=== PATIENT | female | born 1945 | race Caucasian/White ===

== ENCOUNTER 2023-11-06 06:17 | Observation (INO) | payer MEDICARE ==
[2023-11-06 07:12] LABS: Absolute Neutrophil Ct (ANC) 3.53 x10^3/uL (1.4-6.9); BASOPHIL % 0.6 % (0.0-0.4); Basophil (Absolute #) 0.05 x10^3/uL (0-0.4); Eosinophil % 4.5 % (0.00-5.0); Eosinophil (Absolute #) 0.37 x10^3/uL (0-0.5); Hematocrit 39.1 % (35-47); Hemoglobin 12.7 g/dL (12.0-16.0); IMMATURE GRAN # 0.02 x10^3u/L (0.00-0.03); IMMATURE GRAN % 0.2 % (0.00-0.4); Lymphocyte (Absolute #) 3.69 x10^3/uL (1.0-4.6); Lymphocytes % 44.5 % (24.0-44.0); Mean Cell Volume 85.4 fL (78-100); Mean Corpuscular Hemoglobin 27.7 pg (26-32); Mean Corpuscular Hgb Concent. 32.5 g/dL (32-36); Mean Platelet Volume 10.9 fL (7.5-11.0); Monocyte (Absolute #) 0.63 x10^3/uL (0.0-1.3); Monocytes % 7.6 % (0.0-12.0); Neutrophil % 42.6 % (36.0-66.0); Platelet Count 272 x10^3/uL (150-450); Red Blood Count 4.58 x10^6/uL (4.1-5.4); Red Cell Distribution Width 12.6 % (11.5-14.0); White Blood Count 8.3 x10^3/uL (4.0-10.5)
[2023-11-06 07:48] LABS: ALBUMIN 4.3 g/dL (3.5-5.0); ANION GAP 11.4 MEQ/L (5-15); BILIRUBIN,TOTAL 0.6 mg/dL (0.2-1.3); Calcium 9.6 mg/dL (8.4-10.2); Creatinine 1 0.59 mg/dL (0.52-1.04); EST GLOMERULAR FILTRATION RATE 91.1 ML/MIN; Total Protein 7.4 g/dL (6.3-8.2)
[2023-11-06 07:56] LABS: Appearance Clear (Clear); Bacteria None Seen /HPF (None Seen); Bilirubin Negative (Negative); Blood Negative (Negative); Epithelial Cells None Seen /HPF (None Seen); Glucose, Urine Negative (Negative); Hyaline Casts NONE SEEN /LPF (0-2); Ketones Negative (Negative); Leukocyte Esterase Negative (Negative); Nitrite Negative (Negative); Protein,Urine Dip Negative (Negative); RBC 0-2 /HPF (0-5); Specific Gravity <=1.005 (1.005-1.030); Urobilinogen 0.2 mg/dL (0.2); WBC 0-2 /HPF (0-5)
[2023-11-06 08:06] LABS: ADD URINE CULTURE? NO (NO)
[2023-11-06] MEDS ORDERED: BABY ASPIRIN 81 MG CHEW ONE (08:28)
[2023-11-06] MEDS ORDERED: NITRO-BID 2% UD PACKETS ONE (08:28)
[2023-11-06] MEDS: NITRO-BID 2% UD PACKETS TOP ONE (08:31)
[2023-11-06] MEDS: BABY ASPIRIN 81 MG CHEW PO ONE (08:33)
--- NOTE | 2023-11-06 08:57 | XRAY ---
Indication: Left chest pain. Comparison: None Portable chest demonstrates minimal bibasilar hazy infiltrates versus atelectasis, left greater than right. Heart is not enlarged. Bony thorax intact with osteopenia and mild degenerative changes. Comment: Lung findings not reported by interpreting ER clinician. Telephone report given to Dr. Martin at 0852 hrs. on July 06, 2024.
--- NOTE | 2023-11-06 11:27 | ERPHSYRPT ---
- History of Present Illness Time Seen by Provider: 11/06/23 08:10 Historian: patient, family Exam Limitations: no limitations Patient Subjective Stated Complaint: pt states she woke up around 0130 with chest pain radiating to her lt arm. Triage Nursing Assessment: pt alert and oriented, answers questions approp. pt ambulates into room with steady gait noted. respirations nonlabored with lungs cta [place] warm and dry. heart rate 86 sinus rhythm on monitor. . Physician History: 78 years old female with history of hypertension presented in the ER with intermittent chest pain since 1 AM today. Patient reports she woke up around 130 with left-sided chest pain with some radiation to the left arm. Patient described this as a pressure sensation, took baby aspirin and went back to sleep. She woke up again prior to arrival with moderate to severe dull aching pain/pressure with radiation to left arm without any significant aggravating or relieving factors. Denies associated palpitations or shortness of breath. No fever or chills or cough reported. Denies any history of coronary artery disease or cardiac workup in the past. Aspirin Treatment Today: 81 mg x 1 Allergies/Adverse Reactions: No Known Drug Allergies Allergy (Verified 11/06/23 12:19) Home Medications: Amlodipine Besylate [Norvasc] 10 mg PO HS 11/06/23 [History] Benazepril HCl [Lotensin] 20 mg PO HS 11/06/23 [History] Hx Tetanus, Diphtheria Vaccination/Date Given: Yes Hx Influenza Vaccination/Date Given: Yes Hx Pneumococcal Vaccination/Date Given: Yes Travel Risk - International Travel Have you traveled outside of the country in past 3 weeks: No - Coronavirus Screening Are you exhibiting any of the following symptoms?: No Close contact with a COVID-19 positive Pt in past 14-21 Days: No - Vaccine Status Have you recieved a Covid-19 vaccination: Yes Neurology Physician: Moderna - Vaccination Dates Date of 2cond Vaccination (if applicable): 2020 - Review of Systems Constitutional: No Symptoms Eyes: No Symptoms Ears, Nose, & Throat: No Symptoms Respiratory: No Symptoms Cardiac: Chest Pain Abdominal/Gastrointestinal: No Symptoms Genitourinary Symptoms: No Symptoms Musculoskeletal: No Symptoms Skin: No Symptoms Neurological: No Symptoms Psychological: No Symptoms Endocrine: No Symptoms - Past Medical History Cardiac History: Hypertension Other Medical History: swelling in lower ext - Past Surgical History Past Surgical History: Yes Musculoskeletal: Joint Replacement Female Surgical History: Hysterectomy Other Surgical History: rt tot hip - Social History Smoking Status: Never smoker Exposure to second hand smoke: No Drug Use: none Patient Lives Alone: No - Nursing Vital Signs Nursing Vital Signs: Initial Vital Signs Temperature 98.5 F 11/06/23 06:20 Pulse Rate 80 11/06/23 06:20 Respiratory Rate 16 11/06/23 06:20 Blood Pressure 150/70 11/06/23 06:20 O2 Sat by Pulse Oximetry 97 11/06/23 06:20 Pain Scale Pain Intensity 10 - Physical Exam General Appearance: no apparent distress, alert Eye Exam: PERRL/EOMI Ears, Nose, Throat Exam: normal ENT inspection, pharynx normal, moist mucous membranes Neck Exam: normal inspection, non-tender, supple, full range of motion Respiratory Exam: normal breath sounds, lungs clear Cardiovascular Exam: regular rate/rhythm, normal heart sounds Gastrointestinal/Abdomen Exam: soft, normal bowel sounds, No tenderness Back Exam: normal inspection, normal range of motion Extremity Exam: normal inspection, normal range of motion Neurologic Exam: alert, oriented x 3, cooperative, post splitter II-XII nml as tested Skin Exam: normal color SpO2 Interpretation: normal SpO2: 94 O2 Delivery: Room Air - Course EKG Interpreted by Me: RATE (88), Sinus Rhythm, Left [place] Deviation, NORMAL INTERVALS, Other (PACs) Ordered Tests: Medication Summary Discontinued Medications Generic Name Dose Route Start Last Admin Trade Name Freq PRN Reason Stop Dose Admin Acetaminophen 325 mg 11/06/23 12:51 11/06/23 20:30 Acetaminophen 325 Mg Tablet PO 12/06/23 12:50 325 mg Q4H PRN PRN Administration PAIN, FEVER, HEADACHE Amlodipine Besylate 10 mg 11/06/23 22:00 11/06/23 22:53 Amlodipine Besylate 5 Mg Tablet PO 12/06/23 21:59 10 mg HS KLEBER Administration Aspirin 243 mg 11/06/23 08:25 11/06/23 08:33 Aspirin 81 Mg Tab.Chew PO 11/06/23 08:26 243 mg STAT ONE Administration Aspirin Confirm 11/06/23 08:28 Aspirin 81 Mg Tab.Chew Administered 11/06/23 08:29 Dose 324 mg .ROUTE .STK-MED ONE Benazepril HCl 20 mg 11/06/23 22:00 11/06/23 22:54 Benazepril Hcl 10 Mg Tablet PO 12/06/23 21:59 20 mg HS KLEBER Administration Enoxaparin Sodium 40 mg 11/07/23 10:00 11/07/23 09:19 Enoxaparin Sodium 40 Mg/0.4 Ml Syringe SQ 12/07/23 09:59 Not Given DAILY KLEBER Famotidine 20 mg 11/06/23 22:00 11/07/23 09:16 Famotidine 20 Mg Tablet PO 12/06/23 21:59 20 mg BID KLEBER Administration Nitroglycerin 0.5 gm 11/06/23 08:26 11/06/23 08:31 Nitroglycerin 1 Gm Packet TOP 11/06/23 08:27 0.5 gm STAT ONE Administration Nitroglycerin Confirm 11/06/23 08:28 Nitroglycerin 1 Gm Packet Administered 11/06/23 08:29 Dose 1 gm .ROUTE .STK-MED ONE Nitroglycerin 0.4 mg 11/06/23 12:55 Nitroglycerin 0.4 Mg Tablet Bottle SL 12/06/23 12:54 Q5MIN PRN MR X 3 PRN CHEST PAIN Lab/Rad Data: Laboratory Result Diagrams 11/06/23 06:55 11/06/23 06:55 Laboratory Results 11/06/23 11/06/23 11/06/23 Range/Units 10:53 07:48 06:55 WBC (4.0-10.5) x10^3/uL RBC (4.1-5.4) x10^6/uL Hgb (12.0-16.0) g/dL Hct (35-47) % MCV (78-100) fL MCH (26-32) pg MCHC (32-36) g/dL RDW (11.5-14.0) % Plt Count (150-450) x10^3/uL MPV (7.5-11.0) fL Gran % (36.0-66.0) % Immature Gran % (Auto) (0.00-0.4) % Nucleat RBC Rel Count (0.00-0.1) % Eos # (Auto) (0-0.5) x10^3/uL Immature Gran # (Auto) (0.00-0.03) x10^3u/L Absolute Lymphs (auto) (1.0-4.6) x10^3/uL Absolute Monos (auto) (0.0-1.3) x10^3/uL Absolute Nucleated RBC (0.00-0.01) x10^3u/L Lymphocytes % (24.0-44.0) % Monocytes % (0.0-12.0) % Eosinophils % (0.00-5.0) % Basophils % (0.0-0.4) % Absolute Granulocytes (1.4-6.9) x10^3/uL Basophils # (0-0.4) x10^3/uL Sodium (137-145) mmol/L Potassium (3.5-5.1) mmol/L Chloride (98-107) mmol/L Carbon Dioxide (22-30) mmol/L Anion Gap (5-15) MEQ/L BUN (7-17) mg/dL Creatinine (0.52-1.04) mg/dL Estimated GFR ML/MIN Glucose (74-106) mg/dL Calcium (8.4-10.2) mg/dL Total Bilirubin (0.2-1.3) mg/dL AST (14-36) U/L ALT (0-35) U/L Alkaline Phosphatase (38-126) U/L Troponin I < 0.012 (0.000-0.034) ng/mL NT-Pro-B Natriuret Pep (<300) pg/mL Serum Total Protein (6.3-8.2) g/dL Albumin (3.5-5.0) g/dL Triglycerides 82 (30-150) mg/dL Cholesterol 224 H (50-200) mg/dL LDL Cholesterol 108 H (30-100) mg/dL HDL Cholesterol 85 H (40-60) mg/dL Heart Disease Risk Ratio 2.6 Urine Color Yellow (Yellow) Urine Appearance Clear (Clear) Urine pH 7.0 (4.6-8.0) Ur Specific [place] <=1.005 (1.005-1.030) Urine Protein Negative (Negative) Urine Glucose (UA) Negative (Negative) mg/dL Urine Ketones Negative (Negative) Urine Blood Negative (Negative) Urine Nitrite Negative (Negative) Urine Bilirubin Negative (Negative) Urine Urobilinogen 0.2 (0.2) mg/dL Ur Leukocyte Esterase Negative (Negative) U Hyaline Cast (Auto) NONE SEEN (0-2) /LPF Urine Microscopic RBC 0-2 (0-5) /HPF Urine Microscopic WBC 0-2 (0-5) /HPF Ur Epithelial Cells None Seen (None Seen) /HPF Urine Bacteria None Seen (None Seen) /HPF Urine Culture Reflexed NO (NO) 11/06/23 11/06/23 11/06/23 Range/Units 06:55 06:55 06:55 WBC 8.3 (4.0-10.5) x10^3/uL RBC 4.58 (4.1-5.4) x10^6/uL Hgb 12.7 (12.0-16.0) g/dL Hct 39.1 (35-47) % MCV 85.4 (78-100) fL MCH 27.7 (26-32) pg MCHC 32.5 (32-36) g/dL RDW 12.6 (11.5-14.0) % Plt Count 272 (150-450) x10^3/uL MPV 10.9 (7.5-11.0) fL Gran % 42.6 (36.0-66.0) % Immature Gran % (Auto) 0.2 (0.00-0.4) % Nucleat RBC Rel Count 0.0 (0.00-0.1) % Eos # (Auto) 0.37 (0-0.5) x10^3/uL Immature Gran # (Auto) 0.02 (0.00-0.03) x10^3u/L Absolute Lymphs (auto) 3.69 (1.0-4.6) x10^3/uL Absolute Monos (auto) 0.63 (0.0-1.3) x10^3/uL Absolute Nucleated RBC 0.00 (0.00-0.01) x10^3u/L Lymphocytes % 44.5 H (24.0-44.0) % Monocytes % 7.6 (0.0-12.0) % Eosinophils % 4.5 (0.00-5.0) % Basophils % 0.6 (0.0-0.4) % Absolute Granulocytes 3.53 (1.4-6.9) x10^3/uL Basophils # 0.05 (0-0.4) x10^3/uL Sodium 139 (137-145) mmol/L Potassium 4.0 (3.5-5.1) mmol/L Chloride 107 (98-107) mmol/L Carbon Dioxide 24 (22-30) mmol/L Anion Gap 11.4 (5-15) MEQ/L BUN 15 (7-17) mg/dL Creatinine 0.59 (0.52-1.04) mg/dL Estimated GFR 91.1 ML/MIN Glucose 97 (74-106) mg/dL Calcium 9.6 (8.4-10.2) mg/dL Total Bilirubin 0.60 (0.2-1.3) mg/dL AST 22 (14-36) U/L ALT 12 (0-35) U/L Alkaline Phosphatase 68 (38-126) U/L Troponin I < 0.012 (0.000-0.034) ng/mL NT-Pro-B Natriuret Pep 128 (<300) pg/mL Serum Total Protein 7.4 (6.3-8.2) g/dL Albumin 4.3 (3.5-5.0) g/dL Triglycerides (30-150) mg/dL Cholesterol (50-200) mg/dL LDL Cholesterol (30-100) mg/dL HDL Cholesterol (40-60) mg/dL Heart Disease Risk Ratio Urine Color (Yellow) Urine Appearance (Clear) Urine pH (4.6-8.0) Ur Specific [place] (1.005-1.030) Urine Protein (Negative) Urine Glucose (UA) (Negative) mg/dL Urine Ketones (Negative) Urine Blood (Negative) Urine Nitrite (Negative) Urine Bilirubin (Negative) Urine Urobilinogen (0.2) mg/dL Ur Leukocyte Esterase (Negative) U Hyaline Cast (Auto) (0-2) /LPF Urine Microscopic RBC (0-5) /HPF Urine Microscopic WBC (0-5) /HPF Ur Epithelial Cells (None Seen) /HPF Urine Bacteria (None Seen) /HPF Urine Culture Reflexed (NO) - Progress Progress: improved, re-examined Air Movement: good Progress Note: 11/06/23 11:37 78 years old is evaluated for intermittent left-sided chest pressure pain with radiation to the left arm. Patient is given aspirin and Nitropaste, on reevaluation her pain is remarkably improved. EKG showed sinus rhythm with no acute ST elevation and negative troponins. Chest x-ray showed bibasilar infiltrate versus atelectasis, I do not think patient has pneumonia but more of atelectasis. She is on room air 98% and no tachypnea or tachycardia lungs clear to auscultation. Chemistries fairly unremarkable otherwise. With her intermittent chest pain I believe patient would benefit with observation admission and trending of cardiac enzymes and further evaluation possible stress test/calcium scoring. I have discussed with hospitalist Dr. Francis, Reviewed history, workup and agreed with admission. I have discussed the results of workup with patient and family who understand and agree with plan of observation admission. Blood Culture(s) Obtained: No Antibiotics given: No Discussed with Dr.: Other (Dr. Francis) Counseled pt/family regarding: lab results, diagnosis, rad results Medical Desision Making - Discussion of managment Care discussed with:: hospitalist Reviewed:: Test results Agreed on:: Treatment plan, place in obs Will see patient: in hospital - Diagnostic Testing Diagnostic test were ordered, analyzed, and reviewed by me: Yes Radiological Interpretation: Reviewed by me - Risk of complications The pt has a high risk of morbidity or mortality based on: Decision regarding hospitilization or escalation of hosp level of care - Departure Departure Disposition: Observation Clinical Impression: Chest pain, rule out acute myocardial infarction Condition: Stable Critical Care Time: No
--- NOTE | 2023-11-06 12:46 | PCM.HP ---
History of Present Illness - Chief Complaint Chief Complaint: Chest pain rule out acute [place] Date: 11/06/23 (12:41) History of Present Illness: is a 78 year old female admitted with chest pain. Pain came on at 1:30 am. She took some nitro and had continued pain but was able to sleep at 3:30. She woke up at 5:30 and pain was still there so she came to ER. Pain is described as pressure sensation that radiates to left arm. Pain came on at rest. No provocative factors. Pain was relieved with nitro. She did not have dyspnea, nausea or diaphoresis with the pain. The pain is gone now. She denies history of heart disease. She has HTN but no diabetes, HLD or smoking. She does have FH of CAD. PMH includes only history of HTN. - Review of Systems Constitutional: No Symptoms, No Fever Eyes: No Symptoms Ears, Nose, & Throat: No Symptoms Respiratory: No Symptoms, No Cough, No Orthopnea, No Short Of Breath Cardiac: Chest Pain, Edema, No Palpitations, No Syncope, No Orthopnea, No PND Abdominal/Gastrointestinal: No Symptoms, No Abdominal Pain, No Nausea, No Vomiting Genitourinary Symptoms: No Symptoms, No Dysuria, No Frequency, No Hematuria Musculoskeletal: No Symptoms Skin: No Symptoms Neurological: No Symptoms Psychological: No Symptoms Endocrine: No Symptoms Hematologic/Lymphatic: No Symptoms Immunological/Allergic: No Symptoms All Other Systems: Reviewed and Negative Medications & Allergies Home Medications: Home Medication List Amlodipine Besylate [Norvasc] 10 mg PO HS 11/06/23 [History Confirmed 11/06/23] Benazepril HCl [Lotensin] 20 mg PO HS 11/06/23 [History Confirmed 11/06/23] Allergies/Adverse Reactions: Allergies Allergy/AdvReac Type Severity Reaction Status Date / Time No Known Drug Allergies Allergy Verified 11/06/23 12:19 - Past Medical History Neurological History: No Pertinent History ENT History: No Pertinent History Cardiac History: No Pertinent History, Hypertension Respiratory History: No Pertinent History Endocrine Medical History: No Pertinent History Musculoskelatal History: Arthritis GI Medical History: Irritable Bowel History: No Pertinent History Pyscho-Social History: No Pertinent History Reproductive Disorders: No Pertinent History Comment: HIP REPLACEMENT D/T ARTHRITIS - Past Surgical History Past Surgical History: Yes Cardiac History: No Pertinent History GI Surgical History: No Pertinent History Genitourinary Surgical Hx: No Pertinent History Musculskeletal Surgical Hx: Joint Replacement Female Surgical History: Hysterectomy Other Surgical History: rt tot hip - Social History Smoking Status: Never smoker Exposure to second hand smoke: No Alcohol: None Drug Use: none - Physical Exam Vital Signs: Vital Signs - 24 hr Temp Pulse Pulse Resp BP BP Pulse Ox 11/06/23 11:39 94 L 11/06/23 11:00 71 19 131/60 11/06/23 10:30 72 15 127/59 11/06/23 10:00 66 19 130/55 11/06/23 09:36 75 24 120/60 94 L 11/06/23 09:35 94 L 11/06/23 08:30 77 15 158/72 95 11/06/23 08:01 74 16 142/60 94 L 11/06/23 07:30 71 21 151/70 96 11/06/23 07:00 74 15 135/61 97 11/06/23 06:41 95 11/06/23 06:30 73 20 148/69 96 11/06/23 06:20 98.5 F 80 90 16 150/70 97 General Appearance: no apparent distress Neurologic Exam: alert, oriented x 3, cooperative, specification consultant II-XII nml as tested Eye Exam: PERRL/EOMI, eyes nml inspection Ears, Nose, Throat Exam: normal ENT inspection Neck Exam: normal inspection, non-tender, supple, full range of motion Respiratory Exam: normal breath sounds Cardiovascular Exam: regular rate/rhythm, normal heart sounds Gastrointestinal/Abdomen Exam: soft, normal bowel sounds, No tenderness, No distention, No mass Rectal Exam: deferred Back Exam: normal inspection Extremity Exam: normal inspection Skin Exam: normal color Lymphatic Exam: No adenopathy Results - Labs Lab/Micro Results: Lab Results-Last 24 Hours 11/06/23 11/06/23 11/06/23 Range/Units 06:55 06:55 06:55 WBC 8.3 (4.0-10.5) x10^3/uL RBC 4.58 (4.1-5.4) x10^6/uL Hgb 12.7 (12.0-16.0) g/dL Hct 39.1 (35-47) % MCV 85.4 (78-100) fL MCH 27.7 (26-32) pg MCHC 32.5 (32-36) g/dL RDW 12.6 (11.5-14.0) % Plt Count 272 (150-450) x10^3/uL MPV 10.9 (7.5-11.0) fL Gran % 42.6 (36.0-66.0) % Immature Gran % (Auto) 0.2 (0.00-0.4) % Nucleat RBC Rel Count 0.0 (0.00-0.1) % Eos # (Auto) 0.37 (0-0.5) x10^3/uL Immature Gran # (Auto) 0.02 (0.00-0.03) x10^3u/L Absolute Lymphs (auto) 3.69 (1.0-4.6) x10^3/uL Absolute Monos (auto) 0.63 (0.0-1.3) x10^3/uL Absolute Nucleated RBC 0.00 (0.00-0.01) x10^3u/L Lymphocytes % 44.5 H (24.0-44.0) % Monocytes % 7.6 (0.0-12.0) % Eosinophils % 4.5 (0.00-5.0) % Basophils % 0.6 (0.0-0.4) % Absolute Granulocytes 3.53 (1.4-6.9) x10^3/uL Basophils # 0.05 (0-0.4) x10^3/uL Sodium 139 (137-145) mmol/L Potassium 4.0 (3.5-5.1) mmol/L Chloride 107 (98-107) mmol/L Carbon Dioxide 24 (22-30) mmol/L Anion Gap 11.4 (5-15) MEQ/L BUN 15 (7-17) mg/dL Creatinine 0.59 (0.52-1.04) mg/dL Estimated GFR 91.1 ML/MIN Glucose 97 (74-106) mg/dL Calcium 9.6 (8.4-10.2) mg/dL Total Bilirubin 0.60 (0.2-1.3) mg/dL AST 22 (14-36) U/L ALT 12 (0-35) U/L Alkaline Phosphatase 68 (38-126) U/L Troponin I < 0.012 (0.000-0.034) ng/mL NT-Pro-B Natriuret Pep 128 (<300) pg/mL Serum Total Protein 7.4 (6.3-8.2) g/dL Albumin 4.3 (3.5-5.0) g/dL Urine Color (Yellow) Urine Appearance (Clear) Urine pH (4.6-8.0) Ur Specific [place] (1.005-1.030) Urine Protein (Negative) Urine Glucose (UA) (Negative) mg/dL Urine Ketones (Negative) Urine Blood (Negative) Urine Nitrite (Negative) Urine Bilirubin (Negative) Urine Urobilinogen (0.2) mg/dL Ur Leukocyte Esterase (Negative) U Hyaline Cast (Auto) (0-2) /LPF Urine Microscopic RBC (0-5) /HPF Urine Microscopic WBC (0-5) /HPF Ur Epithelial Cells (None Seen) /HPF Urine Bacteria (None Seen) /HPF Urine Culture Reflexed (NO) 11/06/23 11/06/23 Range/Units 07:48 10:53 WBC (4.0-10.5) x10^3/uL RBC (4.1-5.4) x10^6/uL Hgb (12.0-16.0) g/dL Hct (35-47) % MCV (78-100) fL MCH (26-32) pg MCHC (32-36) g/dL RDW (11.5-14.0) % Plt Count (150-450) x10^3/uL MPV (7.5-11.0) fL Gran % (36.0-66.0) % Immature Gran % (Auto) (0.00-0.4) % Nucleat RBC Rel Count (0.00-0.1) % Eos # (Auto) (0-0.5) x10^3/uL Immature Gran # (Auto) (0.00-0.03) x10^3u/L Absolute Lymphs (auto) (1.0-4.6) x10^3/uL Absolute Monos (auto) (0.0-1.3) x10^3/uL Absolute Nucleated RBC (0.00-0.01) x10^3u/L Lymphocytes % (24.0-44.0) % Monocytes % (0.0-12.0) % Eosinophils % (0.00-5.0) % Basophils % (0.0-0.4) % Absolute Granulocytes (1.4-6.9) x10^3/uL Basophils # (0-0.4) x10^3/uL Sodium (137-145) mmol/L Potassium (3.5-5.1) mmol/L Chloride (98-107) mmol/L Carbon Dioxide (22-30) mmol/L Anion Gap (5-15) MEQ/L BUN (7-17) mg/dL Creatinine (0.52-1.04) mg/dL Estimated GFR ML/MIN Glucose (74-106) mg/dL Calcium (8.4-10.2) mg/dL Total Bilirubin (0.2-1.3) mg/dL AST (14-36) U/L ALT (0-35) U/L Alkaline Phosphatase (38-126) U/L Troponin I < 0.012 (0.000-0.034) ng/mL NT-Pro-B Natriuret Pep (<300) pg/mL Serum Total Protein (6.3-8.2) g/dL Albumin (3.5-5.0) g/dL Urine Color Yellow (Yellow) Urine Appearance Clear (Clear) Urine pH 7.0 (4.6-8.0) Ur Specific [place] <=1.005 (1.005-1.030) Urine Protein Negative (Negative) Urine Glucose (UA) Negative (Negative) mg/dL Urine Ketones Negative (Negative) Urine Blood Negative (Negative) Urine Nitrite Negative (Negative) Urine Bilirubin Negative (Negative) Urine Urobilinogen 0.2 (0.2) mg/dL Ur Leukocyte Esterase Negative (Negative) U Hyaline Cast (Auto) NONE SEEN (0-2) /LPF Urine Microscopic RBC 0-2 (0-5) /HPF Urine Microscopic WBC 0-2 (0-5) /HPF Ur Epithelial Cells None Seen (None Seen) /HPF Urine Bacteria None Seen (None Seen) /HPF Urine Culture Reflexed NO (NO) - Radiology Impressions Radiology Exams & Impressions: Radiology Procedures Category Date Time Status CHEST 1 VIEW (PORTABLE) Stat Exams 11/06/23 06:42 Completed Assessment/Plan (1) Chest pain, rule out acute myocardial infarction Current Visit: Yes Status: Acute Assessment & Plan: Chest pain at rest radiating to left arm relieved with NG No history of CAD EKG and troponin negative Will repeat troponin and EKG. Will order echocardiogram. If repeat EKG and troponin negative will set up stress test and cardiology consultation outpatient. Check ddimer. Check lipid panel. Code(s): R07.9 - CHEST PAIN, UNSPECIFIED (2) Hypertension Current Visit: Yes Status: Chronic Assessment & Plan: Continue Benazpril and Amlodipine Code(s): I10 - ESSENTIAL (PRIMARY) HYPERTENSION Telemedicine Encounter - Telemedicine Encounter Telemedicine Encounter: The entirety of this encounter was performed via Telemedicine" after consent obtained. Labs and imaging reviewed Discussed with ER provider. 70 minutes spent on care of this patient Mark Francis MD [employer]
[2023-11-06] MEDS ORDERED: Nitrostat 0.4 MG Tablet SL PRN (12:55)
--- NOTE | 2023-11-06 13:54 | XRAY ---
Indication: Chest pain. Comparison: Taken earlier in the day Portable chest is better inflated and now clear. Heart not enlarged. No new/acute findings.
[2023-11-06 14:54] LABS: Risk Ratio 2.6
[2023-11-06] MEDS: TYLENOL 325 MG PO PRN (20:30)
[2023-11-06] MEDS ORDERED: NON-FORMULARY ITEM (Amlodipine Besylate [Norvasc] 10 MG Tablet) PO SCH (22:00)
[2023-11-06] MEDS ORDERED: NON-FORMULARY ITEM (Benazepril Hcl [Lotensin] 20 MG Tablet) PO SCH (22:00)
[2023-11-06] MEDS: NORVASC 5 MG PO SCH (22:53)
[2023-11-06] MEDS: Pepcid 20 MG PO SCH (22:53)
[2023-11-06] MEDS: Lotensin PO SCH (22:54)
[2023-11-07 05:24] LABS: Absolute Neutrophil Ct (ANC) 3.92 x10^3/uL (1.4-6.9); BASOPHIL % 0.8 % (0.0-0.4); Basophil (Absolute #) 0.06 x10^3/uL (0-0.4); Eosinophil % 4.2 % (0.00-5.0); Eosinophil (Absolute #) 0.32 x10^3/uL (0-0.5); Hematocrit 38.6 % (35-47); Hemoglobin 12.5 g/dL (12.0-16.0); IMMATURE GRAN # 0.02 x10^3u/L (0.00-0.03); IMMATURE GRAN % 0.3 % (0.00-0.4); Lymphocyte (Absolute #) 2.63 x10^3/uL (1.0-4.6); Lymphocytes % 34.1 % (24.0-44.0); Mean Cell Volume 86.2 fL (78-100); Mean Corpuscular Hemoglobin 27.9 pg (26-32); Mean Corpuscular Hgb Concent. 32.4 g/dL (32-36); Mean Platelet Volume 10.5 fL (7.5-11.0); Monocyte (Absolute #) 0.76 x10^3/uL (0.0-1.3); Monocytes % 9.9 % (0.0-12.0); Neutrophil % 50.7 % (36.0-66.0); Platelet Count 256 x10^3/uL (150-450); Red Blood Count 4.48 x10^6/uL (4.1-5.4); Red Cell Distribution Width 12.7 % (11.5-14.0); White Blood Count 7.7 x10^3/uL (4.0-10.5)
[2023-11-07 05:46] LABS: ANION GAP 8.5 MEQ/L (5-15); BILIRUBIN,TOTAL 0.7 mg/dL (0.2-1.3); Calcium 9.1 mg/dL (8.4-10.2); Creatinine 1 0.53 mg/dL (0.52-1.04); EST GLOMERULAR FILTRATION RATE 93.4 ML/MIN; Potassium 3.7 mmol/L (3.5-5.1)
[2023-11-07] MEDS: ENOXAPARIN SODIUM SQ SCH (09:19)
--- NOTE | 2023-11-07 11:25 | PCM.DS ---
Discharge Summary Date of Admission: 11/06/23 12:02 Date of Discharge: 11/07/23 Admitting Physician: HARIS ROSS MD Primary Care Provider: RASHAAD NOLASCO Allergies Allergies No Known Drug Allergies Allergy (Verified 11/06/23 12:19) Hospital Summary - Hospital Course Hospital Course: is a 78 year old female with PMHX of arthritis, HTN, irritable bowel, BL hip replacement, and chronic BLLE edema. She was admitted with chest pain. Pain came on at 1:30 am. She took some nitro and had continued pain but was able to sleep at 3:30. She woke up at 5:30 and pain was still there so she came to ER. Pain was described as pressure sensation that radiates to left arm. Pain came on at rest. No provocative factors. Pain was relieved with nitro. She did not have dyspnea, nausea or diaphoresis with the pain. The pain was gone on admission and denies any pain since. She denies history of heart disease. She has HTN but no diabetes, HLD or smoking. She does have FH of CAD. EF 69.6 per release and technical records clerk, still needs to be read by cardiology. Trop x3 negative. She has made an appointment to f/u with her general accounting clerk Saturday. She denies CP, SOB, Abd. pain, N/V/D. - Vitals & Intake/Output Vital Signs: Vital Signs Temperature 97.6 F 11/07/23 08:00 Pulse Rate 69 11/07/23 08:00 Respiratory Rate 16 11/07/23 08:00 Blood Pressure 129/61 11/07/23 08:00 O2 Sat by Pulse Oximetry 93 L 11/07/23 08:00 Intake & Output: Intake & Output 11/04/23 11/05/23 11/06/23 11/07/23 11:59 11:59 11:59 11:59 Intake Total 1200 Balance 1200 Weight 82.6 kg 85.1 kg - Lab Result Diagrams: 11/07/23 04:45 11/07/23 04:45 Lab Results-Last 24 Hrs: Lab Results-Last 24 Hours 11/06/23 11/06/23 11/06/23 Range/Units 06:55 10:53 12:54 WBC (4.0-10.5) x10^3/uL RBC (4.1-5.4) x10^6/uL Hgb (12.0-16.0) g/dL Hct (35-47) % MCV (78-100) fL MCH (26-32) pg MCHC (32-36) g/dL RDW (11.5-14.0) % Plt Count (150-450) x10^3/uL MPV (7.5-11.0) fL Gran % (36.0-66.0) % Immature Gran % (Auto) (0.00-0.4) % Nucleat RBC Rel Count (0.00-0.1) % Eos # (Auto) (0-0.5) x10^3/uL Immature Gran # (Auto) (0.00-0.03) x10^3u/L Absolute Lymphs (auto) (1.0-4.6) x10^3/uL Absolute Monos (auto) (0.0-1.3) x10^3/uL Absolute Nucleated RBC (0.00-0.01) x10^3u/L Lymphocytes % (24.0-44.0) % Monocytes % (0.0-12.0) % Eosinophils % (0.00-5.0) % Basophils % (0.0-0.4) % Absolute Granulocytes (1.4-6.9) x10^3/uL Basophils # (0-0.4) x10^3/uL D-Dimer 0.70 H* (0.0-0.50) mg/L Sodium (137-145) mmol/L Potassium (3.5-5.1) mmol/L Chloride (98-107) mmol/L Carbon Dioxide (22-30) mmol/L Anion Gap (5-15) MEQ/L BUN (7-17) mg/dL Creatinine (0.52-1.04) mg/dL Estimated GFR ML/MIN Glucose (74-106) mg/dL Calcium (8.4-10.2) mg/dL Total Bilirubin (0.2-1.3) mg/dL AST (14-36) U/L ALT (0-35) U/L Alkaline Phosphatase (38-126) U/L Troponin I < 0.012 (0.000-0.034) ng/mL Serum Total Protein (6.3-8.2) g/dL Albumin (3.5-5.0) g/dL Triglycerides 82 (30-150) mg/dL Cholesterol 224 H (50-200) mg/dL LDL Cholesterol 108 H (30-100) mg/dL HDL Cholesterol 85 H (40-60) mg/dL Heart Disease Risk Ratio 2.6 11/06/23 11/07/23 11/07/23 Range/Units 14:30 04:45 04:45 WBC 7.7 (4.0-10.5) x10^3/uL RBC 4.48 (4.1-5.4) x10^6/uL Hgb 12.5 (12.0-16.0) g/dL Hct 38.6 (35-47) % MCV 86.2 (78-100) fL MCH 27.9 (26-32) pg MCHC 32.4 (32-36) g/dL RDW 12.7 (11.5-14.0) % Plt Count 256 (150-450) x10^3/uL MPV 10.5 (7.5-11.0) fL Gran % 50.7 (36.0-66.0) % Immature Gran % (Auto) 0.3 (0.00-0.4) % Nucleat RBC Rel Count 0.0 (0.00-0.1) % Eos # (Auto) 0.32 (0-0.5) x10^3/uL Immature Gran # (Auto) 0.02 (0.00-0.03) x10^3u/L Absolute Lymphs (auto) 2.63 (1.0-4.6) x10^3/uL Absolute Monos (auto) 0.76 (0.0-1.3) x10^3/uL Absolute Nucleated RBC 0.00 (0.00-0.01) x10^3u/L Lymphocytes % 34.1 (24.0-44.0) % Monocytes % 9.9 (0.0-12.0) % Eosinophils % 4.2 (0.00-5.0) % Basophils % 0.8 (0.0-0.4) % Absolute Granulocytes 3.92 (1.4-6.9) x10^3/uL Basophils # 0.06 (0-0.4) x10^3/uL D-Dimer (0.0-0.50) mg/L Sodium 135 L (137-145) mmol/L Potassium 3.7 (3.5-5.1) mmol/L Chloride 106 (98-107) mmol/L Carbon Dioxide 24 (22-30) mmol/L Anion Gap 8.5 (5-15) MEQ/L BUN 17 (7-17) mg/dL Creatinine 0.53 (0.52-1.04) mg/dL Estimated GFR 93.4 ML/MIN Glucose 94 (74-106) mg/dL Calcium 9.1 (8.4-10.2) mg/dL Total Bilirubin 0.70 (0.2-1.3) mg/dL AST 22 (14-36) U/L ALT 12 (0-35) U/L Alkaline Phosphatase 68 (38-126) U/L Troponin I < 0.012 (0.000-0.034) ng/mL Serum Total Protein 7.0 (6.3-8.2) g/dL Albumin 4.0 (3.5-5.0) g/dL Triglycerides (30-150) mg/dL Cholesterol (50-200) mg/dL LDL Cholesterol (30-100) mg/dL HDL Cholesterol (40-60) mg/dL Heart Disease Risk Ratio - Radiology Exams Ordered Rad Exams-Entire Visit: Radiology Procedures Category Date Time Status CHEST 1 VIEW (PORTABLE) Routine Exams 11/06/23 12:51 Completed CHEST 1 VIEW (PORTABLE) Stat Exams 11/06/23 06:42 Completed CHEST WITH CONTRAST [CT] Stat Exams 11/07/23 07:48 Ordered ECHO W/2D AND DOPPLER [US] Routine Exams 11/06/23 12:53 Taken Discharge Exam General Appearance: no apparent distress, alert Neurologic Exam: alert, oriented x 3, cooperative, normal mood/affect, nml cerebellar function, sensation nml, No motor deficits Eye Exam: PERRL, EOMI, eyes nml inspection Ears, Nose, Throat Exam: normal ENT inspection, pharynx normal, moist mucous membranes Neck Exam: normal inspection, non-tender, supple, full range of motion Respiratory Exam: normal breath sounds, lungs clear, No respiratory distress Cardiovascular Exam: regular rate/rhythm, normal heart sounds Gastrointestinal/Abdomen Exam: soft, No tenderness, No mass Pelvic Exam: deferred Rectal Exam: deferred Back Exam: normal inspection, normal range of motion, No CVA tenderness, No vertebral tenderness Extremity Exam: normal inspection, normal range of motion Skin Exam: normal color, warm, dry Final Diagnosis/Problem List - Final Discharge Diagnosis/Problem (1) Chest pain, rule out acute myocardial infarction Current Visit: Yes Status: Acute Assessment & Plan: - Chest pain at rest radiating to left arm relieved with NG - No history of CAD - Trop x3 negative - echocardiogram- EF 69 per release and technical records clerk - EKG reviewed - Pt made appointment with cardiology for Saturday, Consider OP stress test- cardiology to decide - Check d-dimer- elevated. - Check lipid panel- elevated. Code(s): R07.9 - CHEST PAIN, UNSPECIFIED (2) Hypertension Current Visit: Yes Status: Chronic Assessment & Plan: - BP stable - Continue home meds Code(s): I10 - ESSENTIAL (PRIMARY) HYPERTENSION (3) Elevated d-dimer Current Visit: Yes Status: Acute Assessment & Plan: - D-Dimer 0.70 - Chest CTA negative for PE Code(s): R79.89 - OTHER SPECIFIED ABNORMAL FINDINGS OF BLOOD CHEMISTRY (4) Obesity (BMI 30.0-34.9) Current Visit: Yes Status: Acute Code(s): E66.9 - OBESITY, UNSPECIFIED (5) Hyponatremia Current Visit: Yes Status: Acute Assessment & Plan: - mild 135 Code(s): E87.1 - HYPO-OSMOLALITY AND HYPONATREMIA (6) Hyperlipidemia Current Visit: Yes Status: Acute Assessment & Plan: - Chol 224 - LDL 108 - HDL 85 - Discussed with pt and she does not want to start medication at this time. - She would like to try lifestyle changes including diet and exercise - Education provided on diet and exercise. Code(s): E78.5 - HYPERLIPIDEMIA, UNSPECIFIED (7) Fatty liver Current Visit: Yes Status: Acute Assessment & Plan: - as seen on CT Code(s): K76.0 - FATTY (CHANGE OF) LIVER, NOT ELSEWHERE CLASSIFIED (8) Adrenal mass Current Visit: Yes Status: Acute Assessment & Plan: - F/U with PCP for OP MRI for further evaluation - Discharge Discharge Date: 11/07/23 Disposition: Home, Self-Care Condition: Stable Prescriptions: Continue Benazepril HCl [Lotensin] 20 mg PO HS Amlodipine Besylate [Norvasc] 10 mg PO HS Instructions: Chest Pain (DC) Follow up with: YUKO RAM [CONSULTING PHYSICIAN] - 11/11/23 4:00 pm RASHAAD NOLASCO MD [Primary Care Provider] - 11/12/23 10:45 am Forms: Discharge Instructions
[2023-11-07 11:52] VITALS: BP 135/62; PULSE 71; RESP 20; TEMP 97.9
--- NOTE | 2023-11-07 12:19 | XRAY ---
CLINICAL HISTORY: elevated d-dimer TECHNIQUE: Contiguous axial CT images of the chest were acquired with the administration of intravenous contrast with CT pulmonary angiogram protocol. Coronal and sagittal reconstructions were obtained. COMPARISON: None. FINDINGS: The main pulmonary trunk and bilateral main pulmonary arteries its segmental and subsegmental branches are normally opacified with contrast without filling defects. Subtle bilateral apical fibrotic changes seen. Fine thin atelectatic bands seen in the left lower lobe. Pulmonary parenchyma shows no definite consolidative lesions. No free or encysted pleural effusion. Heart size is normal, and there is no pericardial effusion. No pathologically enlarged mediastinal, hilar, or axillary lymph node was identified. There is no definite mass lesion in the chest wall Few hyperdense calculi were noted in the gall bladder lumen. No pericholecystic fluid seen. The liver shows fatty infiltration and a few tiny non-enhancing cysts in the left lobe of the liver. A bilateral extra-renal pelvis was seen with more dilatation on the right side and a simple cortical cyst in the left lower lobe. A small well-defined low-density nodule seen in the right adrenal gland measuring 1.4x1.3cm. IMPRESSION: 1. No evidence of pulmonary embolism. 2. No evidence of consolidation or pulmonary infection. 3. Cholelithiasis without definite imaging evidence of acute cholecystitis. 4. Small well-defined low-density nodule seen in the right adrenal gland measuring 1.4x1.3cm, need further evaluation with MRI in phase and out of phase images for further characterization of the nodule. 5. Diffuse fatty liver with tiny cysts in left lobe. Electronically Signed by: Destiney Roach MD. (11/07/2023 12:15:35 EST)
--- NOTE | 2023-11-08 15:45 | ECHO ---
Transthoracic echocardiographic examination and color Doppler was done on 11/06/2023. INDICATION: Chest pain. IMPRESSION: 1) NO REGIONAL WALL MOTION ABNORMALITY. ESTIMATED GLOBAL LEFT VENTRICULAR EJECTION FRACTION OF AROUND 60 TO 65%. 2) MILD MITRAL REGURGITATION. 3) TRACE TRICUSPID REGURGITATION. RIGHT VENTRICULAR SYSTOLIC PRESSURE OF 28 MM OF MERCURY. 4) LEFT VENTRICULAR DIASTOLIC DYSFUNCTION. 5) LEFT VENTRICULAR HYPERTROPHY. 6) MILDLY DILATED RIGHT-SIDED CHAMBERS. The left ventricle is visualized and demonstrated adequate motion of all the segments. Estimated global left ventricular ejection fraction between 60 and 65%. There is mild left ventricular hypertrophy. The mitral valve is seen and this opens adequately. There is mild mitral regurgitation. Left atrium is normal. Tissue Doppler study of the lateral mitral annulus suggestive of left ventricular diastolic dysfunction. The aortic valve opens adequately. There is no significant gradient across the left ventricular outflow tract. The visualized aorta is within normal range. The right ventricle is mildly dilated. There is trace tricuspid regurgitation. The right ventricular systolic pressure of 28 mm of Mercury.
[2023-11-08 20:17] VITALS: O2SAT 94
== END 2023-11-07 13:23 | disposition home or self-care (01) ==
LOC: ED 06:17 → MED SURG 12:02
PROVIDERS: ADMIT Internal Medicine; ATTEND Internal Medicine
DX: R07.9 Chest pain, unspecified (principal); I10 Essential (primary) hypertension; R60.0 Localized edema; R79.89 Other specified abnormal findings of blood chemistry; E66.9 Obesity, unspecified; E87.1 Hypo-osmolality and hyponatremia; E78.5 Hyperlipidemia, unspecified; K76.0 Fatty (change of) liver, not elsewhere classified; E27.9 Disorder of adrenal gland, unspecified; Z20.828 Contact with and (suspected) exposure to other viral communicable diseases; Z79.899 Other long term (current) drug therapy
CPT/HCPCS: 36000; 36415; 71045; 71260; 80053; 80061; 81001; 83721; 83880; 84484; 85025; 85379; 93005; 93041; 93306; 94760; 99284; Q3014; 93268; A9270-GY; G0378